=== PATIENT | male | born 1960 | race Caucasian/White ===

== ENCOUNTER 2021-07-24 01:41 | Inpatient (IN) | payer BC ==
[2021-07-24 02:20] VITALS: BMI 34.9
[2021-07-24] MEDS ORDERED: Nitroglycerin 0.4 MG TAB (25 Tab Bottle) SL PRN (02:30)
[2021-07-24] MEDS: Nitroglycerin 2% Ointment 1 INCH/1 GM Packet TOP SCH ×2 (03:00→20:54)
[2021-07-24] MEDS ORDERED: Enoxaparin Sodium 120 MG/0.8 ML SYRINGE SC SCH ×2 (03:00→21:00)
[2021-07-24 05:04] LABS: #Basophils 0.1 10x3/uL (0.0-0.2); #Eosinphils 0.3 10x3/uL (0.0-0.5); #Monocytes 0.7 10x3/uL (0.0-1.1); #Neutrophils 5.8 10x3/uL (1.5-8.4); %Basophils 0.8 % (0.0-2.0); %Eosinophils 3.2 % (0.0-6.0); %Lymphocytes 22.9 % (18.0-47.0); %Monocytes 7.7 % (0.0-10.0); %Neutrophils 64.8 % (40.0-75.0); Hemoglobin 13.5 g/dL (13.5-17.5); Mean Corpuscular HGB CONC 33.1 g/dL (32.0-36.0); Mean Corpuscular Hemoglobin 31.3 pg (27.0-33.0); Mean Corpuscular Volume 94.7 fl (81.2-95.1); Mean Platelet Volume 9.9 fl (7.4-10.4); Platelet Count 273 10x3/uL (150-450); RBC Distribution Width 13.1 % (11.5-14.5); Red Blood Cell (RBC) Count 4.31 10x6/uL (4.32-5.72); White Blood Cell (WBC) Count 8.9 10x3/uL (3.5-10.5)
[2021-07-24 05:19] LABS: INR-International Normal Ratio 0.9; PTT 31.6 sec (22.0-33.0); Prothrombin Time 10.1 sec (9.5-12.1)
[2021-07-24 05:22] LABS: Troponin I 0.278 ng/mL (< 0.028)
[2021-07-24 05:23] LABS: Anion Gap 13 mmol/L (10-20); BUN (Urea Nitrogen) 19 mg/dL (8.4-25.7); Calc. Creatinine Clearance 149 mL/min (70-130); Calcium 8.3 mg/dL (7.8-10.44); Carbon Dioxide 22 mmol/L (22-29); Cardiac Risk 4.8 (Less than 4.5); Chloride 109 mmol/L (98-107); Cholesterol 167 mg/dl (< 200 Desired); Glucose 140 mg/dL (70-105); HDL Cholesterol 35 mg/dL (>60 Neg Risk); LDL Cholesterol, Calculated 91 mg/dL; Magnesium 1.8 mg/dL (1.6-2.6); Potassium 4.1 mmol/L (3.5-5.1); Sodium 140 mmol/L (136-145); Triglycerides 205 mg/dL (Less than 150)
[2021-07-24] MEDS ORDERED: Communication Order-Pharmacy FS SCH (09:15)
[2021-07-24] MEDS ORDERED: Acetaminophen 325 MG TAB PO PRN (10:05)
[2021-07-24 10:19] LABS: INR-International Normal Ratio 0.9; PTT 30.6 sec (22.0-33.0); Prothrombin Time 10.2 sec (9.5-12.1)
[2021-07-24] MEDS ORDERED: Midazolam HCl 2 mg/2 ml Vial ONE (12:14)
[2021-07-24] MEDS ORDERED: Fentanyl 100 MCG/2 ML VIAL ONE (12:14)
[2021-07-24] MEDS ORDERED: Ondansetron PF 4 MG/2 ML Vial ONE (12:51)
[2021-07-24] MEDS ORDERED: Atropine Sulfate 0.4 mg/1 ml Vial ONE (12:52)
[2021-07-24] MEDS ORDERED: Clopidogrel Bisulfate 300 MG TAB ONE (13:08)
[2021-07-24] MEDS ORDERED: Ezetimibe 10 MG TAB PO SCH ×2 (13:45→18:00)
[2021-07-24] MEDS ORDERED: Acetaminophen/Codeine 30-300mg Tablet PO PRN (13:48)
[2021-07-24] MEDS ORDERED: Sodium Chloride 0.9% 200 ML IV PRN (13:48)
[2021-07-24] MEDS ORDERED: hydrALAZINE 20 MG/ML VIAL ONE (14:01)
[2021-07-24] MEDS: Acetaminophen/Codeine 30-300mg Tablet PO PRN ×2 (15:17→21:17)
[2021-07-24] MEDS: Carvedilol 3.125 MG TAB PO SCH (18:21)
[2021-07-24] MEDS: buPROPion 75 MG TAB PO SCH ×2 (18:25→21:04)
[2021-07-24] MEDS: Aspirin Chewable 81 MG TAB PO SCH (18:25)
[2021-07-24] MEDS ORDERED: Atorvastatin Calcium 40 MG TAB PO SCH (21:00)
[2021-07-24] MEDS: TICAGRELOR 90 MG TABLET PO SCH (21:05)
[2021-07-24] MEDS ORDERED: Morphine 4 MG/ML VIAL SLOW IVP SCH (22:45)
[2021-07-24] MEDS ORDERED: Ondansetron PF 4 MG/2 ML Vial IVP SCH (22:45)
[2021-07-25] MEDS ORDERED: Ezetimibe 10 MG TAB PO SCH (09:00)
[2021-07-25] MEDS ORDERED: FLU VACC QS2021-22(6MOS UP)/PF 60 MCG/0.5 ML SYRINGE IM ONE (09:00)
[2021-07-25] MEDS: buPROPion 75 MG TAB PO SCH (09:08)
[2021-07-25] MEDS: Acetaminophen/Codeine 30-300mg Tablet PO PRN (09:08)
[2021-07-25] MEDS: TICAGRELOR 90 MG TABLET PO SCH (09:08)
[2021-07-25] MEDS: Carvedilol 3.125 MG TAB PO SCH ×2 (09:08→17:24)
[2021-07-25] MEDS: Aspirin Chewable 81 MG TAB PO SCH (09:08)
[2021-07-25 16:59] VITALS: BP 163/87; TEMP 97.6
[2021-07-27] MEDS ORDERED: metFORMIN 500 MG TAB PO SCH (08:00)
== END 2021-07-25 16:30 | disposition home or self-care (01) | DRG 246 ==
LOC: CSHTELE 01:41 → OBSVTOIN 02:30
PROVIDERS: ADMIT Family Medicine; ATTEND Family Medicine
PROC: 027237Z Dilation of Coronary Artery, Three Arteries with Four or More Drug-eluting Intraluminal Devices, Percutaneous Approach (ICD-10-PCS; principal; 2021-07-24)
PROC: 4A023N7 Measurement of Cardiac Sampling and Pressure, Left Heart, Percutaneous Approach (ICD-10-PCS; 2021-07-24)
PROC: B2111ZZ Fluoroscopy of Multiple Coronary Arteries using Low Osmolar Contrast (ICD-10-PCS; 2021-07-24)
PROC: B2151ZZ Fluoroscopy of Left Heart using Low Osmolar Contrast (ICD-10-PCS; 2021-07-24)
PROC: B241ZZ3 Ultrasonography of Multiple Coronary Arteries, Intravascular (ICD-10-PCS; 2021-07-24)
DX: I21.4 Non-ST elevation (NSTEMI) myocardial infarction (principal); E78.5 Hyperlipidemia, unspecified; I73.9 Peripheral vascular disease, unspecified; E66.9 Obesity, unspecified; I24.9 Acute ischemic heart disease, unspecified; F17.210 Nicotine dependence, cigarettes, uncomplicated; R73.03 Prediabetes; G44.40 Drug-induced headache, not elsewhere classified, not intractable; T46.3X5A Adverse effect of coronary vasodilators, initial encounter; Z88.0 Allergy status to penicillin; Z79.82 Long term (current) use of aspirin; Z98.890 Other specified postprocedural states; Z68.34 Body mass index [BMI] 34.0-34.9, adult; Z90.49 Acquired absence of other specified parts of digestive tract; Z71.6 Tobacco abuse counseling
CPT/HCPCS: 36415; 80048; 80061; 83036; 83735; 84484; 85025; 85610; 85730; 92928; 92929; 92978; 92979; 93005; 93010; 93306; 93458; 99152; 99153; C1725; C1753; C1874; C1887; C9600; C9601; J0360; J0461; J1650; J2250; J2270; J2405; J3010

== ENCOUNTER 2023-07-22 05:57 | Inpatient (IN) | payer BC ==
[2023-07-22 06:46] LABS: #Basophils 0.1 10x3/uL (0.0-0.2); #Eosinphils 0.2 10x3/uL (0.0-0.5); #Monocytes 0.7 10x3/uL (0.0-1.1); #Neutrophils 6.4 10x3/uL (1.5-8.4); %Basophils 0.9 % (0.0-2.0); %Eosinophils 2.5 % (0.0-6.0); %Lymphocytes 21.2 % (18.0-47.0); %Monocytes 7.1 % (0.0-10.0); Hematocrit 40.4 % (38.8-50.0); Hemoglobin 13.4 g/dL (13.5-17.5); Mean Corpuscular HGB CONC 33.2 g/dL (32.0-36.0); Mean Corpuscular Hemoglobin 30.6 pg (27.0-33.0); Mean Corpuscular Volume 92.2 fl (81.2-95.1); Platelet Count 325 10x3/uL (150-450); RBC Distribution Width 13.1 % (11.5-14.5); Red Blood Cell (RBC) Count 4.38 10x6/uL (4.32-5.72); White Blood Cell (WBC) Count 9.3 10x3/uL (3.5-10.5)
[2023-07-22 06:53] LABS: Anion Gap 14 mmol/L (10-20); BUN (Urea Nitrogen) 15 mg/dL (8.4-25.7); Calc. Creatinine Clearance 0 mL/min (70-130); Calcium 8.9 mg/dL (7.8-10.44); Carbon Dioxide 22 mmol/L (23-31); Chloride 107 mmol/L (98-107); Estimated GFR 101; Glucose 117 mg/dL (80-115); INR-International Normal Ratio 0.9; PTT 29.4 sec (22.0-33.0); Potassium 4.4 mmol/L (3.5-5.1); Sodium 139 mmol/L (136-145)
[2023-07-22] MEDS ORDERED: Phenylephrine 40 MG/NS 250 ML 0 ML ONE (07:10)
[2023-07-22] MEDS ORDERED: Lidocaine 1% (PF) 30 ML VIAL ONE (07:16)
[2023-07-22] MEDS ORDERED: Atropine Sulfate 1 mg/1 ml Vial ONE (07:16)
[2023-07-22] MEDS ORDERED: Midazolam HCl 2 mg/2 ml Vial ONE ×2 (07:17→08:41)
[2023-07-22] MEDS ORDERED: fentaNYL 50 mcg/mL 1 mL Vial ONE ×2 (07:17→08:41)
[2023-07-22] MEDS ORDERED: PHENYLEPHRINE-NS 100 MCG/ML 10 ML SYRINGE ONE (07:18)
[2023-07-22] MEDS ORDERED: Heparin 10,000 UNITS/ 10 ML VIAL ONE ×2 (07:19→08:40)
[2023-07-22] MEDS ORDERED: TICAGRELOR 90 MG TABLET ONE ×2 (09:22→09:23)
[2023-07-22] MEDS ORDERED: Aspirin Chewable 81 MG TAB ONE (09:22)
[2023-07-22] MEDS ORDERED: Loperamide HCl 2 MG CAP PO PRN (09:39)
[2023-07-22] MEDS ORDERED: Senokot S 8.6-50 MG TAB PO PRN (09:39)
[2023-07-22] MEDS ORDERED: Ondansetron ODT 4 MG TAB PO PRN (09:39)
[2023-07-22] MEDS ORDERED: Ondansetron PF 4 MG/2 ML Vial IVP PRN (09:39)
[2023-07-22] MEDS ORDERED: HYDROcodone/Acetaminophen 5/325 mg Tablet PO PRN ×2 (09:39)
[2023-07-22] MEDS ORDERED: Calcium Carbonate 500 MG ChewTAB PO PRN (09:39)
[2023-07-22] MEDS ORDERED: Acetaminophen 325 MG TAB PO PRN (09:39)
[2023-07-22] MEDS ORDERED: Sodium Chloride 0.9% 200 ML IV PRN (09:44)
[2023-07-22] MEDS ORDERED: Nitroglycerin 0.4 MG TAB (25 Tab Bottle) SL PRN (09:44)
[2023-07-22] MEDS ORDERED: Acetaminophen/Codeine 30-300mg Tablet PO PRN ×2 (09:44)
[2023-07-22] MEDS ORDERED: Sodium Chloride 0.9% 1,000 ML IV SCH (09:45)
[2023-07-22 10:30] VITALS: BMI 36.7
[2023-07-22] MEDS ORDERED: Iopamidol 300 61% 100 ML VIAL FS ONE (10:37)
[2023-07-22] MEDS: Carvedilol 6.25 MG TAB PO SCH (16:44)
[2023-07-22] MEDS: TICAGRELOR 90 MG TABLET PO SCH (19:56)
[2023-07-22] MEDS ORDERED: Atorvastatin Calcium 40 MG TAB PO SCH (21:00)
[2023-07-23 04:16] LABS: #Basophils 0.1 10x3/uL (0.0-0.2); #Eosinphils 0.2 10x3/uL (0.0-0.5); #Monocytes 0.7 10x3/uL (0.0-1.1); #Neutrophils 6.8 10x3/uL (1.5-8.4); %Basophils 0.7 % (0.0-2.0); %Eosinophils 2.2 % (0.0-6.0); %Lymphocytes 20.3 % (18.0-47.0); %Monocytes 7.4 % (0.0-10.0); Hematocrit 38.6 % (38.8-50.0); Hemoglobin 13.3 g/dL (13.5-17.5); Mean Corpuscular HGB CONC 34.5 g/dL (32.0-36.0); Mean Platelet Volume 10.4 fl (7.4-10.4); Platelet Count 280 10x3/uL (150-450); RBC Distribution Width 13.1 % (11.5-14.5); Red Blood Cell (RBC) Count 4.15 10x6/uL (4.32-5.72); White Blood Cell (WBC) Count 9.9 10x3/uL (3.5-10.5)
[2023-07-23 04:30] LABS: Anion Gap 13 mmol/L (10-20); BUN (Urea Nitrogen) 11 mg/dL (8.4-25.7); Calc. Creatinine Clearance 157 mL/min (70-130); Calcium 8.6 mg/dL (7.8-10.44); Carbon Dioxide 20 mmol/L (23-31); Chloride 107 mmol/L (98-107); Estimated GFR 101; Glucose 110 mg/dL (80-115); Sodium 136 mmol/L (136-145)
[2023-07-23] MEDS: TICAGRELOR 90 MG TABLET PO SCH (08:10)
[2023-07-23] MEDS: Carvedilol 6.25 MG TAB PO SCH (08:11)
[2023-07-23] MEDS ORDERED: Losartan 50 MG TAB PO SCH (09:00)
[2023-07-23] MEDS ORDERED: Aspirin Chewable 81 MG TAB PO SCH (09:00)
[2023-07-23] MEDS ORDERED: Amlodipine 10 MG TAB PO SCH (09:00)
[2023-07-23 09:21] VITALS: BP 131/79; TEMP 98.1
== END 2023-07-23 11:10 | disposition home or self-care (01) | DRG 36 ==
LOC: CSHCCL 05:57 → CSHIMCU 10:02
PROVIDERS: ADMIT Specialist; ATTEND Specialist
PROC: 037H3DZ Dilation of Right Common Carotid Artery with Intraluminal Device, Percutaneous Approach (ICD-10-PCS; principal; 2023-07-22)
DX: I65.23 Occlusion and stenosis of bilateral carotid arteries (principal); I25.2 Old myocardial infarction; E78.5 Hyperlipidemia, unspecified; K21.9 Gastro-esophageal reflux disease without esophagitis; F32.A Depression, unspecified; F17.210 Nicotine dependence, cigarettes, uncomplicated; I25.10 Atherosclerotic heart disease of native coronary artery without angina pectoris; E11.9 Type 2 diabetes mellitus without complications; I11.9 Hypertensive heart disease without heart failure; E66.01 Morbid (severe) obesity due to excess calories; E78.2 Mixed hyperlipidemia; Z98.890 Other specified postprocedural states; Z95.5 Presence of coronary angioplasty implant and graft; Z68.34 Body mass index [BMI] 34.0-34.9, adult; Z71.6 Tobacco abuse counseling
CPT/HCPCS: 36222; 36227; 37215; 71045; 80048; 85025; 85347; 85610; 85730; 93005; 93010; 99152; 99153; C1725; C1760; C1769; C1876; C1884; C1894; J0461; J1644; J1650; J2001; J2250; J3010; Q9967